=== PATIENT | male | born 1965 | race Caucasian/White ===

== ENCOUNTER → 2016-12-04 | Outpatient (CLI) | payer MEDICARE, OTHER ==
[2016-12-04 12:40] LABS: Basophils # (A) 0.1 k/uL (0-0.2); Basophils % (A) 1 %; CH 29.6; CHCM 33.5; Eosinophils # (A) 0.2 k/uL (0-0.7); Eosinophils % (A) 3 %; HCT 47.8 % (39.0-53.0); HDW 2.62; HGB 15.6 gm/dL (13.0-17.5); Luc # (Auto) 0.24; Luc % (Auto) 3; Lymphocytes % (A) 23 %; MCHC 32.6 g/dL (31.0-37.0); MCV 88.8 fL (80.0-100.0); Mean Platelet Volume 7.1; Monocytes # (A) 0.5 k/uL (0-1.0); Monocytes % (A) 6 %; Neutrophils # (A) 5.7 k/uL (1.3-7.7); Neutrophils % (A) 64 %; RBC 5.38 m/uL (4.30-5.90); RDW 13.4 % (11.5-15.5); WBC 8.8 k/uL (3.8-10.6); WBC (Perox) 8.59
[2016-12-04 12:44] LABS: ALT 50 U/L (21-72); AST 25 U/L (17-59); Alkaline Phosphatase 116 U/L (38-126); Anion Gap 11 mmol/L; Bilirubin, Delta 0.2 mg/dL (0.0-0.2); Blood Urea Nitrogen 12 mg/dL (9-20); Calcium 9.5 mg/dL (8.4-10.2); Carbon Dioxide 31 mmol/L (22-30); Chloride 102 mmol/L (98-107); Cholesterol 157 mg/dL (<200); Glucose 77 mg/dL (74-99); HDL Cholesterol 45 mg/dL (40-60); Non-African American GFR(MDRD) >60 (>60 ml/min/1.73 sqM); Sodium 144 mmol/L (137-145); Total Bilirubin 0.7 mg/dL (0.2-1.3); Total Protein 7.4 g/dL (6.3-8.2); Triglycerides 158 mg/dL (<150)
[2016-12-04 13:10] LABS: Potassium 4.1 mmol/L (3.5-5.1)
[2016-12-04 16:20] LABS: Hemoglobin A1C 5.5 % (4.2-6.1)
== END | disposition home or self-care (01) ==
LOC: LABWHC1 12:01
PROVIDERS: ATTEND Internal Medicine Critical Care Medicine
DX: G47.33 Obstructive sleep apnea (adult) (pediatric) (principal); I63.9 Cerebral infarction, unspecified; E78.5 Hyperlipidemia, unspecified; I10 Essential (primary) hypertension; Z79.899 Other long term (current) drug therapy; Z12.5 Encounter for screening for malignant neoplasm of prostate
CPT/HCPCS: 84439; 80061; 80053; 82248; 83036; 84443; 85025; 82306; 36415; G0103

== ENCOUNTER → 2018-10-01 | Outpatient (CLI) | payer MEDICARE, OTHER ==
--- NOTE | 2018-10-01 17:44 | PN ---
PROGRESS NOTE Stephane is 52. He has moderate to severe obstructive sleep apnea. His last evaluation in my office was approximately 3 years ago. He is coming in for a follow up. He is doing well. Note that the patient had a CVA and he has right-sided weakness. He has no gait dysfunction. His CVA has remained stable and unchanged over the past 3 years. No new onset of neurologic deficits. His weight is down by around 6 to 8 pounds. He used to weigh 294 and currently is down to 286. He is interested in finding an alternative mask, as the patient is currently using the Eson nose mask, and he wants something that is easier to put on and off, knowing that he is able to use only his left hand. Otherwise, I checked his CPAP compliance, and the patient has been utilizing his CPAP of an average of 7.9 hours per night. His CPAP use for more than 4 hours is 22/30. His leak is 6 L/minute. His AHI while on treatment is down to 2.4, consistent with successful treatment. He has no other new complaints for now. His main interest is to update his CPAP mask. REVIEW OF SYSTEMS: Fourteen-point review of systems was done. No reported weight gain. There is some limited weight loss. No fever, chills or night sweats. No other constitutional symptoms. No neck pain. No nasal congestion or post-nasal drainage. No sinus infections. No respiratory difficulties. No cough or sputum production, tightness or wheezing. No angina or palpitations. No dysuria, frequency or urgency. No heartburn. No nausea, vomiting, abdominal distention or flatus. No swelling in the lower extremities. He has a history of CVA with right-sided weakness. No difficulty with swallowing. No difficulty with mobility and ambulation. No difficulties with wounds or ulcerations. No difficulties with sleep paralysis, aerophagia or cataplexy. No issues with dizziness. No issues with any other complaints other than things mentioned above in the history of present illness. PHYSICAL EXAMINATION: BP is 135/82, pulse 100, respirations 16, temperature 98.0, saturation 94% on room air. Weight is 288. Height is 5 feet 10 inches. [place] Score is 13. BMI of 41.3. GENERAL APPEARANCE: Calm, comfortable. Head is atraumatic, normocephalic. NECK: Supple. There is no JVD. No goiter or neck masses. LUNGS: Clear to auscultation. Heart sounds are regular rate and rhythm. Normal S1, S2. No S3, S4. No murmurs. ABDOMEN: Soft, nontender. No organomegaly. EXTREMITIES: No edema. No cyanosis or clubbing. Neurologically, the patient has right-sided weakness. No dysphagia. No difficulties with gait or mobility. SKIN: Negative for any wounds or ulceration. IMPRESSION: 1. Obstructive sleep apnea, apnea/hypopnea index of 70, consistent with severe disease, currently on CPAP pressure of 8 cm of water with successful therapy. 2. Obesity. 3. Hypertension. 4. Gout. 5. History of cerebrovascular accident with right-sided weakness. PLAN: 1. Keep CPAP therapy at the same level of pressure. 2. Provide this patient a DreamWear nose mask instead of the Eson nose mask for now. 3. Encourage weight loss. 4. Treatment is successful, and the patient will continue his treatment for now. No new-onset medical problems or comorbidities. See me back in a year's time, earlier if needed. For now, his treatment is successful. A prescription was given for a DreamWear nose mask, small size. MMODL / IJN: [id number] /
== END ==
LOC: SLEEP 14:36
PROVIDERS: ATTEND Internal Medicine Critical Care Medicine
DX: G47.33 Obstructive sleep apnea (adult) (pediatric) (principal); E66.9 Obesity, unspecified; M10.9 Gout, unspecified; I10 Essential (primary) hypertension; R53.1 Weakness; Z86.73 Personal history of transient ischemic attack (TIA), and cerebral infarction without residual deficits; Z99.89 Dependence on other enabling machines and devices

== ENCOUNTER → 2019-01-23 | Outpatient (CLI) | payer MEDICARE, OTHER ==
[2019-01-23 14:47] LABS: Basophils # (A) 0.1 k/uL (0-0.2); Basophils % (A) 1 %; Eosinophils # (A) 0.2 k/uL (0-0.7); Eosinophils % (A) 2 %; HCT 50.3 % (39.0-53.0); HGB 16.6 gm/dL (13.0-17.5); Lymphocytes # (A) 2.4 k/uL (1.0-4.8); Lymphocytes % (A) 22 %; MCH 28.8 pg (25.0-35.0); MCHC 32.9 g/dL (31.0-37.0); MCV 87.4 fL (80.0-100.0); Mean Platelet Volume 7.5; Monocytes # (A) 0.7 k/uL (0-1.0); Monocytes % (A) 7 %; Neutrophils # (A) 7.4 k/uL (1.3-7.7); Neutrophils % (A) 68 %; Platelet Count 324 k/uL (150-450); RBC 5.76 m/uL (4.30-5.90); RDW 14.9 % (11.5-15.5)
[2019-01-23 19:10] LABS: Albumin 4.3 g/dL (3.80-4.90); Albumin/Globulin Ratio 1.72 (1.60-3.17); Anion Gap 11.7 mmol/L (4.00-12.00); BUN/Creat Ratio 12.73 Ratio (12.00-20.00); Calcium 9.1 mg/dL (8.7-10.3); Carbon Dioxide 28.3 mmol/L (21.6-31.8); Globulin 2.5 g/dL (1.6-3.3); Potassium 3.9 mmol/L (3.5-5.5); Total Bilirubin 0.5 mg/dL (0.3-1.2); Total Protein 6.8 g/dL (6.2-8.2)
[2019-01-23 19:11] LABS: LDL Cholesterol,Calculated 96.6 mg/dL (0.0-131.0); VLDL Calculation 33.4 mg/dL (5.00-40.00)
[2019-01-23 21:56] LABS: Hemoglobin A1C 5.7 % (4.0-6.0)
== END | disposition home or self-care (01) ==
LOC: LABWHC1 13:53
PROVIDERS: ATTEND Internal Medicine Critical Care Medicine
DX: Z00.00 Encounter for general adult medical examination without abnormal findings (principal); I82.409 Acute embolism and thrombosis of unspecified deep veins of unspecified lower extremity; G89.29 Other chronic pain; F41.9 Anxiety disorder, unspecified; E78.5 Hyperlipidemia, unspecified; I10 Essential (primary) hypertension
CPT/HCPCS: 84439; 80061; 80053; 84443; 85025; 82306; 83036; 36415; G0103

== ENCOUNTER → 2020-01-05 | Outpatient (CLI) | payer MEDICARE, OTHER ==
--- NOTE | 2020-01-05 15:56 | US ---
EXAMINATION TYPE: US carotid duplex BILAT DATE OF EXAM: 01/05/2020 COMPARISON: US carotid 2016 CLINICAL HISTORY: G45.9 TIA,R41.82 AMS. EXAM MEASUREMENTS: RIGHT: Peak Systolic Velocity (PSV) cm/sec ----- Right CCA: 88.3 ----- Right ICA: 74.1 ----- Right ECA: 130.0 ICA/CCA ratio: 0.84 RIGHT: End Diastole cm/sec ----- Right CCA: 20.4 ----- Right ICA: 17.7 ----- Right ECA: 20.4 LEFT: Peak Systolic Velocity (PSV) cm/sec ----- Left CCA: 90.4 ----- Left ICA: 73.5 ----- Left ECA: 127.0 ICA/CCA ratio: 0.84 LEFT: End Diastole cm/sec ----- Left CCA: 15.3 ----- Left ICA: 22.1 ----- Left ECA: 19.7 VERTEBRALS (direction of flow): Right Vertebral: Antegrade Left Vertebral: Antegrade Rhythm: Normal Diane scale images redemonstrate mild to moderate peripheral plaque bilateral carotid bulb level sligh tly more prominent from 2016 study but velocity measurements and ratios in the visualized portion of both internal carotid arteries remains within normal limits. IMPRESSION: Mild to moderate atherosclerotic changes bilaterally without hemodynamically significant stenosis seen in either internal carotid artery. Criteria for Assigning % of Stenosis / Diameter reduction (Estimation based on the indirect measurements of the internal carotid artery velocities (ICA PSV). 1. Normal (no stenosis)=ICA PSV < 125 cm/s: ratio < 2.0: ICA EDV<40 cm/s. 2. Less than 50% stenosis=ICA PSV < 125 cm/s: ratio < 2.0: ICA EDV<40 cm/s. 3. 50 to 69% stenosis=ICA PSV of 125 to 230 cm/s: ration 2.0 ? 4.0: ICA EDV 40-100 cm/s. 4. Greater than 70% stenosis to near occlusion= ICA PSV > 230 cm/s: ratio > 4.0: ICA EDV > 100 cm/s. 5. Near occlusion= ICA PSV velocities may be low or undetectable: variable ratio and ICA EDV. 6. Total occlusion=unable to detect flow.
== END ==
LOC: RADUSWWP 15:24
PROVIDERS: ATTEND Psychiatry & Neurology Neurology
DX: I65.23 Occlusion and stenosis of bilateral carotid arteries (principal)
CPT/HCPCS: 93880

== ENCOUNTER 2024-02-26 15:20 | Emergency (ER) | payer MEDICARE, OTHER ==
[2024-02-26] MEDS ORDERED: ACETAMINOPHEN TAB 500 MG TAB ONE (15:46)
[2024-02-26] MEDS ORDERED: cefTRIAXone IN SWFI 1,000 MG/10 ML SYRINGE IVP ONE (21:15)
[2024-02-26] MEDS ORDERED: SODIUM CHLORIDE 0.9% 1,000 ML BAG ONE (21:15)
--- NOTE | 2024-03-21 14:30 | CT ---
Patient Stephane Grover ID [id number] Order # EXAMINATION TYPE: CT abdomen pelvis w con DATE OF EXAM: 02/26/2024 COMPARISON: No comparison on downtime PACS INDICATION: Abdomen pain DLP: 1802.9 mGycm, Automated exposure control for dose reduction was used. CONTRAST: 0 mL of Isovue 300. Study performed TECHNIQUE: Axial images were obtained from above the diaphragm to the pubic rami in the axial plane a t 5 mm thick sections. Reconstructed images are reviewed on the computer in the coronal plane. FINDINGS: Limited CT sections are obtained the lung bases. The lung bases are clear. CT ABDOMEN: Minimal inflammatory change may be in the more central mesentery just inferior to the solis creas. No discrete abnormality is otherwise evident to account for patient's pain. Liver: Normal Spleen: Normal Pancreas: Mildly atrophic Adrenal glands: The adrenal glands are normal. Gallbladder: Normal Kidneys: No masses are evident. No hydronephrosis is present. No cysts are present. No renal stone s evident Aorta: Vascular calcification is within the aorta. Inferior vena cava: Normal. CT PELVIS: Loops of bowel within the abdomen and pelvis are normal. There are loops of bowel which are incom pletely distended or lack oral contrast limiting their evaluation. Appendix: Normal as visualized. Urinary bladder: Normal. Genitourinary structures: Prostate is prominent Osseous structures: No suspicious lytic or sclerotic lesions. IMPRESSION: 1. There may be some minimal is enteric inflammatory change of uncertain etiology central abdomen. N o additional findings to account for patient's pain
== END 2024-02-26 21:55 | disposition home or self-care (01) ==
LOC: EC 15:20
DX: N39.0 Urinary tract infection, site not specified (principal)
CPT/HCPCS: 74176; 96374; 99284